=== PATIENT | male | born 1990 | race Hispanic/Latino ===

== ENCOUNTER 2021-12-24 13:42 | Inpatient (IN) | payer OTHER ==
[~2021-12-24] VITALS: Ht 175.3 cm; Wt 116.3 kg
[~2021-12-24 13:42] MED LIST: ACET-2079 PO; ONDA4TAB10 PO
[2021-12-24 14:07] LABS: BASOPHILS % (AUTO) 0.2 % (0.0-5.0); EOSINOPHILS % (AUTO) 0.7 % (0.0-8.0); LYMPHOCYTES % (AUTO) 20.9 % (21.0-51.0); MEAN CORPUSCULAR HEMOGLOBIN 29.8 pg (27.0-33.0); MEAN CORPUSCULAR HGB CONC 34.3 g/dL (32.0-36.0); MEAN CORPUSCULAR VOLUME 87.1 fL (79-99); MONOCYTES % (AUTO) 21.3 % (3.0-13.0); NEUTROPHILS % (AUTO) 56.4 % (40.0-77.0); PLATELET COUNT (AUTO) 172 K/uL (130-400); RED BLOOD CELL COUNT(AUTO) 4.59 MIL/uL (4.50-6.20); RED CELL DISTRIBUTION WIDTH 12.2 % (11.0-15.5); WHITE BLOOD COUNT (AUTO) 4.4 K/uL (4.8-10.8)
[2021-12-24 14:13] LABS: APPEARANCE,URINE Clear (CLEAR); BILIRUBIN,URINE Negative (NEGATIVE); COLOR,URINE Yellow (YELLOW); GLUCOSE, URINE (UA) Negative (NEGATIVE); KETONES,URINE Trace mg/dL (NEGATIVE); LEUKOCYTE ESTERASE ,URINE Negative (NEGATIVE); NITRATE,URINE Negative (NEGATIVE); OCCULT BLOOD,URINE Small (NEGATIVE); PH,URINE 5.5 (5.0-8.0); PROTEIN,URINE POS 1+ mg/dL (NEGATIVE); UROBILINOGEN,URINE 0.2 mg/dL (0.2-1.0)
[2021-12-24 14:26] LABS: ALBUMIN 3.4 g/dL (3.5-5.0); POTASSIUM 4.2 mmol/L (3.5-5.1); TOTAL PROTEIN, SERUM 7.8 g/dL (6.0-8.3)
[2021-12-24 14:29] LABS: CREATININE 8.1 mg/dL (0.5-1.5)
[2021-12-24 14:38] LABS: BACTERIA,URINE Few /HPF (None Seen); MUCUS,URINE Rare LPF (None Seen); SQUAMOUS EPITHELIAL CELL,UR Rare /HPF (0-2); WBC,URINE 0-1 /HPF (0-1)
[2021-12-24 15:17] LABS: CRP QUANTITATIVE 76.1 mg/L (0.00-9.0); MAGNESIUM 2.4 mg/dL (1.80-2.40)
[2021-12-24] MEDS ORDERED: DEXTROSE 50%-WATER 50 ML DISP.SYRIN IV PRN (17:00)
[2021-12-24] MEDS: 0.9%NACL 1000ML 1,000 ML IV SCH (17:00)
[2021-12-24] MEDS ORDERED: GLUCAGON 1MG KIT 1 MG ML IM PRN (17:00)
[2021-12-24] MEDS ORDERED: 0.9%NACL 1000ML 1,000 ML IV SCH (17:00)
[2021-12-24 17:25] LABS: PROTEIN,URINE RANDOM 41.9 mg/dL (0-11.9)
[2021-12-24 17:28] LABS: AMPHET/METH SCREEN,URINE NEGATIVE (NEGATIVE); BARBITURATE SCREEN, URINE NEGATIVE (NEGATIVE); BENZODIAZEPINES SCREEN,URINE NEGATIVE (NEGATIVE); CANNABINOID SCREEN,URINE NEGATIVE (NEGATIVE); COCAINE SCREEN,URINE NEGATIVE (NEGATIVE); OPIATE SCREEN,URINE NEGATIVE (NEGATIVE); PHENCYCLIDINE SCREEN,URINE NEGATIVE (NEGATIVE)
[2021-12-24] MEDS ORDERED: TAMSULOSIN HCL 0.4 MG CAP.ER.24H PO ONE (17:30)
[2021-12-24 17:38] LABS: CREATINE KINASE, TOTAL 137 U/L (21-232); MYOGLOBIN 77 ng/mL (10-92)
[2021-12-24 18:48] VITALS: BP 152/91
[2021-12-24] MEDS: INSULIN HUMULIN R 100 UNIT/ML 3ML SQ SCH (21:00)
[2021-12-25] VITALS (7 sets, daily range): BP systolic 132–143; BP diastolic 72–88
[2021-12-25] MEDS: 0.9%NACL 1000ML 1,000 ML IV SCH ×4 (03:05→17:07)
[2021-12-25 04:38] LABS: BASOPHILS % (AUTO) 0.2 % (0.0-5.0); EOSINOPHILS % (AUTO) 0.7 % (0.0-8.0); HEMATOCRIT 38.9 % (42-54); LYMPHOCYTES % (AUTO) 24.1 % (21.0-51.0); MEAN CORPUSCULAR HEMOGLOBIN 30.7 pg (27.0-33.0); MEAN CORPUSCULAR HGB CONC 35.5 g/dL (32.0-36.0); MEAN CORPUSCULAR VOLUME 86.6 fL (79-99); MONOCYTES % (AUTO) 22.6 % (3.0-13.0); NEUTROPHILS % (AUTO) 52.2 % (40.0-77.0); PLATELET COUNT (AUTO) 178 K/uL (130-400); RED BLOOD CELL COUNT(AUTO) 4.49 MIL/uL (4.50-6.20); RED CELL DISTRIBUTION WIDTH 12.3 % (11.0-15.5); WHITE BLOOD COUNT (AUTO) 4.1 K/uL (4.8-10.8)
[2021-12-25 04:56] LABS: POTASSIUM 4.3 mmol/L (3.5-5.1)
[2021-12-25 05:18] LABS: CREATININE 7.9 mg/dL (0.5-1.5)
[2021-12-25 05:39] LABS: HEMOGLOBIN A1C 6.9 % (4.0-6.0)
[2021-12-25] MEDS: INSULIN HUMULIN R 100 UNIT/ML 3ML SQ SCH ×4 (06:14→19:58)
[2021-12-25] MEDS: TAMSULOSIN HCL 0.4 MG CAP.ER.24H PO SCH (08:05)
[2021-12-25] MEDS: ACETAMINOPHEN 325 MG TAB PO PRN (19:52)
[2021-12-25] MEDS ORDERED: HYDROMORPHONE 0.5 MG SYG (0.5MG/0.5ML) IVP ONE (23:30)
[2021-12-26] MEDS: 0.9%NACL 1000ML 1,000 ML IV SCH ×4 (02:18→20:49)
[2021-12-26 03:30] VITALS: BP 142/89
[2021-12-26 04:25] LABS: BASOPHILS % (AUTO) 0.2 % (0.0-5.0); EOSINOPHILS % (AUTO) 1.2 % (0.0-8.0); HEMATOCRIT 38.9 % (42-54); LYMPHOCYTES % (AUTO) 28.9 % (21.0-51.0); MEAN CORPUSCULAR HEMOGLOBIN 29.3 pg (27.0-33.0); MEAN CORPUSCULAR HGB CONC 33.2 g/dL (32.0-36.0); MEAN CORPUSCULAR VOLUME 88.4 fL (79-99); MONOCYTES % (AUTO) 14.5 % (3.0-13.0); PLATELET COUNT (AUTO) 183 K/uL (130-400); RED CELL DISTRIBUTION WIDTH 12.2 % (11.0-15.5); WHITE BLOOD COUNT (AUTO) 4.3 K/uL (4.8-10.8)
[2021-12-26 04:39] LABS: CREATININE 7.1 mg/dL (0.5-1.5); MAGNESIUM 2.3 mg/dL (1.80-2.40); POTASSIUM 4.6 mmol/L (3.5-5.1); TOTAL PROTEIN, SERUM 7.2 g/dL (6.0-8.3)
[2021-12-26] MEDS: INSULIN HUMULIN R 100 UNIT/ML 3ML SQ SCH ×4 (06:42→20:48)
[2021-12-26] MEDS: TAMSULOSIN HCL 0.4 MG CAP.ER.24H PO SCH (07:36)
[2021-12-26 08:00] VITALS: BP 147/75
[2021-12-26] MEDS: ACETAMINOPHEN 325 MG TAB PO PRN ×2 (11:09→17:14)
[2021-12-26 12:00] VITALS: BP 141/80
[2021-12-26 16:00] VITALS: BP 141/77
[2021-12-26 20:00] VITALS: BP 138/49
[2021-12-27] VITALS: BP 139/80
[2021-12-27] MEDS: ACETAMINOPHEN 325 MG TAB PO PRN ×2 (00:03→11:29)
[2021-12-27] MEDS: 0.9%NACL 1000ML 1,000 ML IV SCH ×3 (01:38→07:48)
[2021-12-27 03:41] LABS: HEMATOCRIT 41.2 % (42-54); MEAN CORPUSCULAR HEMOGLOBIN 29.2 pg (27.0-33.0); MEAN CORPUSCULAR HGB CONC 33.5 g/dL (32.0-36.0); MEAN CORPUSCULAR VOLUME 87.3 fL (79-99); RED BLOOD CELL COUNT(AUTO) 4.72 MIL/uL (4.50-6.20); RED CELL DISTRIBUTION WIDTH 12.3 % (11.0-15.5); WHITE BLOOD COUNT (AUTO) 4.9 K/uL (4.8-10.8)
[2021-12-27 04:00] VITALS: BP 130/68
[2021-12-27 04:08] LABS: CREATININE 5.9 mg/dL (0.5-1.5); POTASSIUM 4.1 mmol/L (3.5-5.1); THYROID STIMULATING HORMONE 2.28 uIU/mL (0.36-3.74)
[2021-12-27] MEDS: INSULIN HUMULIN R 100 UNIT/ML 3ML SQ SCH ×2 (06:19→11:30)
[2021-12-27] MEDS: TAMSULOSIN HCL 0.4 MG CAP.ER.24H PO SCH (07:24)
[2021-12-27 07:32] VITALS: BP 122/88
[2021-12-27 11:30] VITALS: BP 134/73
== END 2021-12-27 12:13 | disposition home or self-care (01) | DRG 682 ==
LOC: EDH 13:42 → EDHIP 13:43 → 2AH 18:38
PROVIDERS: ADMIT Hospitalist; ATTEND Hospitalist
DX: N17.9 Acute kidney failure, unspecified (principal); J12.82 Pneumonia due to coronavirus disease 2019; U07.1 COVID-19; M62.82 Rhabdomyolysis; E86.0 Dehydration; E86.1 Hypovolemia; E11.9 Type 2 diabetes mellitus without complications; E66.01 Morbid (severe) obesity due to excess calories; Z68.39 Body mass index [BMI] 39.0-39.9, adult; I10 Essential (primary) hypertension; Z82.49 Family history of ischemic heart disease and other diseases of the circulatory system; Z83.3 Family history of diabetes mellitus
CPT/HCPCS: 36415; 76770; 76870; 80048; 80053; 80305; 81001; 82550; 82570; 82948; 83036; 83605; 83735; 83874; 83930; 83935; 84100; 84156; 84300; 84443; 85025; 85027; 86140; 86160; 86255; 87635; C9803; G0378; J1170; J7030

== ENCOUNTER 2022-10-26 14:37 | Emergency (ER) | payer OTHER ==
[~2022-10-26] VITALS: Ht 175.3 cm; Wt 116.1 kg
[2022-10-26] MEDS ORDERED: DIPH,PERTUSS(ACELL),TET VAC/PF 0.5 ML VIAL IM ONE (15:30)
[2022-10-26] MEDS ORDERED: TETANUS/DIPHTHERIA TOXOID [ADULT] 0.5 ML VIAL IM ONE (15:34)
[2022-10-26 16:43] VITALS: BP 106/72
== END 2022-10-26 16:50 | disposition home or self-care (01) ==
LOC: EDH 14:37
DX: S51.812A Laceration without foreign body of left forearm, initial encounter (principal); X58.XXXA Exposure to other specified factors, initial encounter; Y93.89 Activity, other specified; Y92.89 Other specified places as the place of occurrence of the external cause; Y99.8 Other external cause status; E11.9 Type 2 diabetes mellitus without complications
CPT/HCPCS: 12001; 73110; 90471; 90714; 90715

== ENCOUNTER 2022-11-08 06:47 | Emergency (ER) | payer OTHER ==
[~2022-11-08] VITALS: Ht 177.8 cm; Wt 117.9 kg
[2022-11-08 07:32] VITALS: BP 130/70
== END 2022-11-08 07:35 | disposition home or self-care (01) ==
LOC: EDH 06:47
DX: S61.512D Laceration without foreign body of left wrist, subsequent encounter (principal); E11.22 Type 2 diabetes mellitus with diabetic chronic kidney disease; N18.6 End stage renal disease; Z48.02 Encounter for removal of sutures; X58.XXXD Exposure to other specified factors, subsequent encounter
CPT/HCPCS: 99282